=== PATIENT | female | born 2005 | race Hispanic/Latino ===

== ENCOUNTER 2025-02-16 00:09 | Emergency (ER) | payer SELFPAY ==
[~2025-02-16] VITALS: Ht 152.4 cm; Wt 54.4 kg
--- NOTE | 2025-02-16 01:22 | ERN ---
ED Note History of Present Illness Stated Complaint: FALL, LEFT WRIST INJURY Chief Complaint: Wrist Pain/Injury Time Seen by MD: 00:16 Dictation: This is a 20-year-old female who came into the emergency room stating that she was dancing at a [employer] and fell on her left hand and wrist area. She stated that she had severe pain and hence came into the ER for further evaluation no injury to the head no loss of consciousness. Patient denied any deformity tingling numbness. No erythema lacerations or ecchymosis. Temperature 97.9 pulse 78 respirations 16 blood pressure 110/73 with a pulse oximetry of 100% on room air Allergies: Coded Allergies: No Known Allergies (Unverified Allergy, Unknown, 02/16/25) Past Medical History Past Medical History: No Pertinent History Surgical History: None Family History: Negative LMP: Feb 10, 2025 RN Note Reviewed/Agreed w/PFSH: Yes Review of System Dictation Constitutional: Negative for fever,chills, and weight loss Eyes: Negative for injury, pain,redness, and discharge ENT: Negative for injury,pain or swelling Cardiovascular: Negative for chest pain, palpitations, and edema Respiratory: Negative for shortness of breath, cough, and wheezing, Abdomen/GI: Negative for abdominal pain, nausea, vomiting, diarrhea, and constipation Back: Negative for injury and pain : Negative for injury, bleeding and discharge MS/Extremity: Positive for right hand and wrist injury Skin: Negative for rash, and discoloration Neuro: Negative for headache, weakness, numbness, tingling, and seizure Psych: Negative for suicide ideation, homicidal ideation, and hallucinations Initial Vital Sign VS Vital Signs Date Time Temp Pulse Resp B/P (MAP) Pulse Ox O2 Delivery O2 Flow Rate FiO2 02/16/25 00:10 97.9 78 16 110/73 100 Room Air 02/16/25 01:10 0 21 Physical Exam Dictation General: awake, alert, NAD Head/Face: Normocephalic, atraumatic Eyes: PERRL, EOMI, vision at baseline ENT: oral cavity clear, TMs clear, no signs of infection Neck: Trachea midline, supple, no nuchal rigidity Cardiovascular: RRR, normal S1/S2, No MRGs, no JVD Respiratory: CTAB, no respiratory distress, No rales or wheezes Abdomen: Soft, non-tender, non-distended, normal bowel sounds, no guarding or rebound. Skin: Warm, dry, normal turgor, no rash MS/Extremity: Pulses equal, no cyanosis, neurovascular intact, FROM no obvious deformity of the right hand or right wrist area patient is able to move her hands and fingers Neuro: COAx4, GCS 15, strength 5/5, CN 2-12 intact, normal cerebellar exam, normal gait, Psych: Normal behavior, mood, and affect normal Extremities-trace edema without any palpable cords, Homans sign is negative Results (Laboratory/Radiology) Labs Reviewed?: Yes ED Course ED Course Orders Procedure Category Date Status Time Wrist Comp 3+Vws Lt RAD 02/16/25 Resulted 00:11 Acetaminophen 325 Tab PHA 02/16/25 Complete (Tylenol 325mg Tab 01:00 Current Medications Medications (Trade) Dose Ordered Sig/Homero Route PRN Reason Start Time Stop Time Status Last Admin Dose Admin Acetaminophen (TYLenol 325MG TAB) 650 mg ONCE ONCE PO 02/16/25 01:00 02/16/25 01:01 DC 02/16/25 01:01 Vital Signs Date Time Temp Pulse Resp B/P (MAP) Pulse Ox O2 Delivery O2 Flow Rate FiO2 02/16/25 01:57 97.7 72 16 113/67 97 Room Air* 0 21 02/16/25 01:10 97.9 74 17 115/69 98 Room Air* 0 21 02/16/25 00:10 97.9 78 16 110/73 100 Room Air Medical Decision Making MDM Differential diagnosis: Right wrist contusion, injury to the carpal tunnel, fracture of the wrist bones Rationale: Tests considered and ordered secondary to shared decision making include: Previous outside records reviewed: Old ER visits. Risk of complication and/or morbidity or mortality of patient management: None Medications-Per medication reconciliation Need for hospitalization: Patient does not meet criteria for hospitalization. Need for emergency major/minor surgery: No There are no social concerns with this patient. Prescription drug management Prescriptions will include symptomatic care Patient's prior external medical records from other ER visits were reviewed by me as indicated. Prior testing and results from previous visits were reviewed. Prior tests were taken into account with medical decision making and resource utilization, independent historian/historians were used to obtain complete medical history. I independently interpreted the test that were performed, results were reviewed by me and considered findings on radiology if ordered. Medical management and examination interpretation discussions were had by me with other qualified healthcare professionals as indicated for the patient's care. Problem List Problem List: (1) Wrist contusion (2) Wrist pain, left DX & DISP Disposition: Discharge Departure Impression: Primary Impression: Wrist pain, left Additional Impression: Wrist contusion Condition: Stable Additional Instructions: Patient and the caregiver have been informed of all the diagnostic tests and the imaging conducted during the today's visit to the emergency room and has verbalized understanding of the results I have personally reviewed and interpreted all diagnostic exams performed here in the ER today as well as the vital signs documented by the nursing staff. The patient is now being discharged to home and should follow up with the primary care physician or the specialist as directed by the ER staff. Follow-up with primary care provider in 1 to 2 days. Take medications as directed here in the emergency room. Okay to continue home medications unless otherwise discussed during your visit in the emergency room today. Return to your nearest emergency room if symptoms worsen or if there is no improvement. Call 911 if you need immediate assistance. Take Tylenol or Motrin [id number] as needed and if no contraindications are present. Increase oral hydration. A wound culture or urine culture was ordered here in the emergency room department please follow-up with primary care provider and advise them to get repeat ports from our facility. If you had any Luis wrap/splints that were applied here, please do not remove them until you see your primary care or specialty. Referrals: SELF,REFERRAL (PCP) CHRIS DAVILA MD Feb 16, 2025 01:22
[2025-02-16 01:57] VITALS: BP 113/67; PULSE 72; RESP 16; TEMP 97.7; O2SAT 97
--- NOTE | 2025-02-16 02:06 | HMCIMG ---
EXAM: CR Left Wrist, 3 views. CLINICAL HISTORY: Fall, swelling. COMPARISON: None provided. FINDINGS: No acute fracture or aggressive appearing osseous lesion. The carpal bones demonstrate normal alignment. No arthritis. No joint erosion. The soft tissues are unremarkable. IMPRESSION: 1. No acute osseous abnormality. /[place]
== END 2025-02-16 02:02 | disposition home or self-care (01) ==
LOC: EDH 00:09
DX: S60.212A Contusion of left wrist, initial encounter (principal); M25.532 Pain in left wrist; W18.39XA Other fall on same level, initial encounter; Y93.89 Activity, other specified; Y92.89 Other specified places as the place of occurrence of the external cause; Y99.8 Other external cause status
CPT/HCPCS: 73110; 99284